=== PATIENT | male | born 1985 | race Caucasian/White ===

== ENCOUNTER 2025-03-10 10:04 | Emergency (ER) | payer BC ==
[~2025-03-10] VITALS: Ht 187.9 cm; Wt 104.3 kg
[~2025-03-10 10:04] MED LIST: AMOXICILLIN500 MG PO; CEFADROXIL500 M1 PO; Motrin,Rufen800 MG PO; PENICILLIN VK500 MG PO; SUBOXONE 2 MG-01 TA1 SL; SUBOXONE 8 MG-1 EACH SL
[2025-03-10] MEDS ORDERED: PENICILLIN VK500 MG PO (11:06)
[2025-03-10] MEDS ORDERED: IBU800 M1 PO (11:06)
[2025-03-10] MEDS ORDERED: IBUPROFEN 800 MG TAB PO ONE (11:10)
[2025-03-10] MEDS ORDERED: PENICILLIN V POTASSIUM 500 MG TAB PO ONE (11:10)
== END 2025-03-10 11:19 | disposition home or self-care (01) ==
LOC: ED 10:04
DX: K08.89 Other specified disorders of teeth and supporting structures (principal); R22.0 Localized swelling, mass and lump, head